=== PATIENT | female | born 1945 | race Caucasian/White ===

== ENCOUNTER 2020-08-16 07:56 | Outpatient (CLI) | payer MEDICARE, SELFPAY ==
--- NOTE | 2020-08-16 08:03 | MM_ITS ---
WS: [id number] BILATERAL DIGITAL SCREENING MAMMOGRAPHY WITH CAD CLINICAL INFORMATION: SCREENING HISTORY: Screening mammogram. No current complaints. COMPARISON: TECHNIQUE: Bilateral CC and MLO views. FINDINGS: Scattered fibroglandular densities bilaterally. No suspicious focal mass, asymmetry, calcifications, or architectural distortion. No evidence of malignancy. Punctate calcifications. Secretory calcificat ions. Vascular calcifications. MM/[place] [id number] IMPRESSION: BI-RADS: 2-Benign FOLLOW UP: 1 Year Follow-up Recommend return to annual screening mammography.
== END 2020-08-16 07:57 | disposition home or self-care (01) ==
PROVIDERS: Family Provider Family Medicine; PCP Family Medicine; Visit Provider Family Medicine
DX: Z12.31 Encounter for screening mammogram for malignant neoplasm of breast (principal)
CPT/HCPCS: 77067

== ENCOUNTER 2021-05-18 15:14 | Outpatient (CLI) | payer MEDICARE, SELFPAY ==
--- NOTE | 2021-05-18 15:45 | USCV_ITS ---
Roxie Cline Age: 76 Gender: F : 1945 Exam Date: 05/18/2021 15:41 Ordering Phys: Dario Cunningham DO Technologist: SADE Exam Location: [facility] [place] Indication: DYSPNEA BP: 124 / 93 HR: 77 Rhythm: Sinus Technical Quality: Adequate MEASUREMENTS (Male / Female) Normal Values 2D ECHO LV Diastolic Diameter PLAX 3.6 cm 4.2 - 5.9 / 3.9 - 5.3 cm LV Systolic Diameter PLAX 2.5 cm IVS Diastolic Thickness 1.5 cm 0.6 - 1.0 / 0.6 - 0.9 cm IVS Systolic Thickness 1.5 cm LVPW Diastolic Thickness 1.2 cm 0.6 - 1.0 / 0.6 - 0.9 cm LVPW Systolic Thickness 2.2 cm LVOT Diameter 2.1 cm LV Ejection Fraction 2D Teich 59.6 % LV Ejection Fraction MOD 2C 49.6 % LV Ejection Fraction 2C AL 53.1 % LA Diameter 2.8 cm LA Width 3.1 cm LA Height 5.4 cm RA Width 2.7 cm RA Height 4.6 cm Aorta at Sinotubular Diameter 2.6 cm DOPPLER AV Peak Velocity 316.8 cm/s LVOT Peak Velocity 76.0 cm/s AV Area Cont Eq vti 0.8 cm squared AV Area Cont Eq pk 0.8 cm squared MV Peak Velocity 137.0 cm/s MV Area PHT 3.6 cm squared Mitral E to A Ratio 1.5 MV E' Velocity 65.0 cm/s Mitral E to MV E' Ratio 18.4 Mitral E to LV E' Lateral Ratio 17.1 Mitral E to LV E' Septal Ratio 19.8 TR Peak Velocity 243.8 cm/s TR Peak Gradient 23.8 mmHg Right Atrial Pressure 3.0 mmHg Pulmonary Artery Systolic Pressu 26.8 mmHg PV Peak Velocity 54.0 cm/s RV Acceleration Time 0.1 s RV Ejection Time 0.4 s RV AcT/ET 0.2 FINDINGS Left Ventricle Normal left ventricular cavity size. Mildly decreased left ventricular systolic function. Left ventricular ejection fraction is estimated at 50 %. There appeared to be mild anterior and septal wall hypokinesis with septal bounce could be interventricular conduction delay postoperative state however cannot rule out coronary artery disease.Grade II/IV diastolic dysfunction, moderately elevated filling pressures. Right Ventricle Normal right ventricular size. Right Atrium The right atrium is normal in size. Left Atrium The left atrium is normal in size. Mitral Valve Moderately thickened mitral valve. No mitral valve stenosis. Moderate mitral annular calcification. Moderate-severe mitral valve regurgitation. Aortic Valve Severe aortic valve calcification. Severe aortic valve stenosis, mean gradient 20.5 mmHg, CÉSAR 0.76 cm squared.mild aortic valve regurgitation. Tricuspid Valve Structurally normal tricuspid valve without significant stenosis or regurgitation. Pulmonary artery systolic pressure is normal. Pulmonic Valve Structurally normal pulmonic valve without significant stenosis. There is no pulmonic regurgitation. Pericardium Normal pericardium without effusion. Aorta Normal ascending aorta dimension. CONCLUSIONS 1-Normal left ventricular cavity size. Mildly decreased left ventricular systolic function. Left ventricular ejection fraction is estimated at 50 %. There appeared to be mild anterior and septal wall hypokinesis with septal bounce could be interventricular conduction delay postoperative state however cannot rule out coronary artery disease.Grade II/IV diastolic dysfunction, moderately elevated filling pressures. 2-Severe aortic valve calcification. Severe aortic valve stenosis, mean gradient 20.5 mmHg, CÉSAR 0.76 cm squared.mild aortic valve regurgitation. 3-Moderately thickened mitral valve. No mitral valve stenosis. Moderate mitral annular calcification. Moderate-severe mitral valve regurgitation. 4-There is no pericardial effusion. 5-Pulmonary artery systolic pressure is within normal limits. 6-Right atrial pressure is around 5 mm of mercury. 7-When compared to the prior echocardiogram dated June 29, 2014 there is severe aortic stenosis with aortic valve area of 0.76 cm2 and mean gradient at 20 mmHg now. Due to discrepancy in the aortic valve area and gradient across it second modality such as left heart cath or transesophageal echocardiogram may be considered. There also appeared to be moderate to severe mitral valve regurgitation. There is also new anterior and septal wall motion abnormality. Laina Scanlon MD (Electronically Signed) Final Date: 18 May 2021 20:56 S
== END 2021-05-18 15:15 | disposition home or self-care (01) ==
PROVIDERS: PCP Family Medicine; Visit Provider Family Medicine
DX: R06.02 Shortness of breath (principal); R53.1 Weakness; R01.1 Cardiac murmur, unspecified; I08.0 Rheumatic disorders of both mitral and aortic valves
CPT/HCPCS: 93306

== ENCOUNTER 2021-07-22 08:09 | Emergency (ER) | payer MEDICARE, SELFPAY ==
[2021-07-22 08:17] VITALS: BP 226/89; PULSE 93; RESP 18; TEMP 37.1; O2SAT 98; BMI 28.9
--- NOTE | 2021-07-22 08:22 | ECG_ITS ---
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 Measurements Intervals [place] Rate: 77 P: 80 MO: 143 QRS: 65 QRSD: 128 T: 79 QT: 420 QTc: 478 Interpretive Statements SINUS RHYTHM LEFT BUNDLE BRANCH BLOCK [120+ ms QRS DURATION, 80+ ms Q/S IN V1/V2, 85+ ms R IN I/aVL/V5/V6] No previous ECG available for comparison Electronically Signed On 07-23-2021 17:10:06 CUT OFF WORKER by Falguni Winters M.D. [id number] f
--- NOTE | 2021-07-22 08:22 | W.ED.GENADLT ---
HPI - General Adult General: Chief complaint: General Medical Stated complaint: faint with high bp leaky heart valve surgery soon Time Seen by Provider: 07/22/21 08:17 History of Present Illness: HPI narrative: 76-year-old female presents emergency room lightheadedness dizziness faint leg feeling syncopal near syncopal episodes. She is scheduled to have a TAVR done first severe aortic stenosis. She ran out of some of her blood pressure medicines (amlodipine and losartan) several days ago her symptoms began then and have gotten progressively worse Onset (ago): hour(s) Severity: mild Relieving factors: none Exacerbating factors: none Associated symptoms: Deny chest pain, confusion, cough, diaphoresis, decreased appetite, dyspnea, fevers/chills, headache(s), malaise, nausea, rash, palpitations, seizures, short of breath, syncope, vomiting or weakness Treatments prior to arrival: none Review of Systems Const: Denies: malaise or diaphoresis ENMT: Denies: throat pain, ear or mastoid pain, nasal discharge or nasal congestion Card: Denies: chest pain, palpitations or syncope Resp: Denies: dyspnea GI: Denies: nausea or vomiting : Denies: flank pain, difficulty voiding, dysuria, urinary frequency or urinary urgency Skin/Breast: Denies: rash Neuro: Denies: headache(s) or confusion PFSH ED PFSH: Medical History Genital herpes Hypertension Hypothyroid No pertinent past medical history neghx: dm,dvt/pe TIA (transient ischemic attack) Surgical History Hx of knee surgery (~2016) R knee Family History Mother Hypertension Father Hypertension Brother Hypertension Stroke Grandmother Stroke Maternal Denies family history of Colon cancer Ovarian cancer Diabetes Heart disease Hypercholesteremia Breast cancer Bleeding disorder Uterine cancer Thyroid disease Physical Exam Const: COMMON NORMALS: no acute distress GENERAL APPEARANCE: cooperative and comfortable ORIENTATION/CONSCIOUSNESS: Yes awake, Yes oriented to person, Yes oriented to place and Yes oriented to time HENMT: COMMON NORMALS: normocephalic, atraumatic and hearing grossly normal bilaterally HEAD & SCALP: normocephalic and atraumatic Neck/C-Spine: COMMON NORMALS: no JVD Resp: COMMON NORMALS: normal respiratory effort, No retractions, No use of accessory muscles and clear to auscultation bilaterally AUSCULTATION: clear to auscultation bilaterally Cardio: COMMON NORMALS: no JVD HEART SOUNDS: Murmur heart sound present systolic Location: right sternal border Intensity: V/ GI: COMMON NORMALS: Soft to palpation and No hepatosplenomegaly present AUSCULTATION: Yes normoactive bowel sounds PALPATION: Yes Soft to palpation, No Tenderness to palpation present (GI), No Guarding due to palpation present (GI) and Yes No hepatosplenomegaly present Extremity: COMMON NORMALS: normal to inspection, capillary refill normal, no clubbing, cyanosis or edema, no calf tenderness and no pedal edema Neuro: SENSORIUM/ORIENTATION: Yes oriented to person, Yes oriented to place and Yes oriented to time Skin: COMMON NORMALS: no rashes or lesions noted GENERAL SKIN EXAM: no rashes or lesions noted Course Vital Signs: Vital signs: Vital Signs Temperature 98.7 F 07/22/21 08:17 Pulse Rate 71 07/22/21 11:00 Respiratory Rate 18 07/22/21 11:00 Blood Pressure 164/85 07/22/21 11:00 Pulse Oximetry 96 07/22/21 11:00 MDM - General Adult MDM Narrative: Medical decision making narrative: Labs imaging and EKG reviewed. Blood pressure is improved discharge patient home on losartan 550 mg daily amlodipine 5 mg daily recheck in the office in the next 4 to 5 days if is any worsening or change return to the emergency room sooner. Lab Data: Labs: Lab Results 07/22/21 07/22/21 07/22/21 09:02 09:02 09:02 WBC 6.5 10^3/uL 10^3/ uL (4.0-10.0) RBC 4.65 10^6/uL 10^6 /uL (4.1-5.3) Hgb 13.8 g/dL g/dL (11.5-15.3) Hct 41.1 % % (37.0-47.0) MCV 88.4 fl fl (81-99) MCH 29.7 pg pg (28.0-34.0) MCHC 33.6 g/dL g/dL (30.0-36.0) RDW 13.3 % % (12.1-15.1) Plt Count 284 10^3/cmm 10^3 /cmm (130-400) MPV 10.7 fL H fL (7.4-10.4) Neut % (Auto) 69.1 % % Lymph % (Auto) 23.1 % % Taney % (Auto) 5.5 % % Eos % (Auto) 1.5 % % Baso % (Auto) 0.6 % % Neut # (Auto) 4.51 10^3/uL 10^3 /uL (1.8-7.7) Lymph # (Auto) 1.5 10^3/uL 10^3/ uL (0.8-4.8) Taney # (Auto) 0.4 10^3/uL 10^3/ uL (0.2-0.9) Eos # (Auto) 0.1 10^3/uL 10^3/ uL (0.0-0.8) Baso # (Auto) 0.0 10^3/uL 10^3/ uL (0.0-0.1) Nucleated RBC % (a uto) 0 % % Nucleated RBCs # 0.0 /100WBC /100W BC Sodium 140 mmol/L mmol/L (136-145) Potassium 4.2 mmol/L mmol/L (3.5-5.1) Chloride 106 mmol/L mmol/L (98-107) Carbon Dioxide 18 mmol/L L mmol/ L (22-29) Anion Gap 20.2 H (5-19) BUN 7 mg/dL L mg/dL (8-23) Creatinine 0.5 mg/dL mg/dL (0.5-0.9) GFR Calculation Not Reportable Glucose 134 mg/dL H mg/dL (65-115) Calculated Osmolal ity 290 mOsm/kg mOsm/ kg (285-295) Calcium 8.6 mg/dL mg/dL (8.5-10.5) Troponin T Baselin e 9 ng/L ng/L (0-10) Troponin T 120 Min [place] Troponin T 07/22/21 11:05 WBC RBC Hgb Hct MCV MCH MCHC RDW Plt Count MPV Neut % (Auto) Lymph % (Auto) Taney % (Auto) Eos % (Auto) Baso % (Auto) Neut # (Auto) Lymph # (Auto) [place] # (Auto) Eos # (Auto) Baso # (Auto) Nucleated RBC % (a uto) Nucleated RBCs # Sodium Potassium Chloride Carbon Dioxide Anion Gap BUN Creatinine GFR Calculation Glucose Calculated Osmolal ity Calcium Troponin T Baselin e Troponin T 120 Min [place] 12.04 ng/L H ng/L (0-10) [place] Troponin T 3.04 ABS# ABS# (0-10) Discharge Plan Discharge Patient Disposition: Home Clinical Impression: Aortic stenosis, Benign essential HTN Condition: Stable Prescriptions: New amlodipine 5 mg tablet 5 mg PO DAILY Qty: 30 RF: 0 losartan 50 mg tablet 50 mg PO DAILY Qty: 30 RF: 0 Discontinued losartan 100 mg tablet 100 mg PO DAILY RF: 0 No Action clopidogrel [Plavix] 75 mg tablet 75 mg PO DAILY RF: 0 nystatin-triamcinolone 100,000-0.1 unit/gram-% ointment 1 applic topical BID PRN (Reason: acute vulvitis) Qty: 30 RF: 1 acyclovir 400 mg tablet 400 mg PO BID Qty: 60 RF: 11 atorvastatin 20 mg tablet 20 mg PO DAILY RF: 0 Euthyrox 75 mcg tablet 75 mcg PO DAILY RF: 0 Discharge Orders: Discharge ED (Routine); Ordered 07/22/21 Ordered By: Juan Bustamante Referrals: Dario Cunningham DO [Primary Care Provider] - Discharge Diet: Usual diet Discharge Activity: Limit activity as instructed Patient Instructions: Opioid Safety Activity Restrictions/Additional Instructions: Avoid strenuous activity. Follow-up with your primary care doctor within the next 3 to 5 days to recheck blood pressure. Coding Level of Care Code ED Machine Shop Helper for Chg Fwd Exam Comprehensive
--- NOTE | 2021-07-22 08:49 | PC.NURSE ---
NO REPORT ASSUMED CARE.
--- NOTE | 2021-07-22 08:51 | XR_ITS ---
WS: [id number] PORTABLE CHEST HISTORY: dyspnea/cough COMPARISON: None available. Mild pulmonary hyperinflation. No pneumonia. Normal vasculature. No pleural effusion or pneumothorax. Cardiac size: Normal. Mediastinum/Aorta: Normal mediastinum. No osseous abnormality seen. XR/XR chest 1V portable [id number] IMPRESSION: No acute cardiopulmonary disease.
--- NOTE | 2021-07-22 09:05 | PC.NURSE ---
PT PLACED ON CONTINUOUS SPO2, NIBP, AND CM.
[2021-07-22 09:10] VITALS: BP 238/109; PULSE 81; RESP 15; O2SAT 97
[2021-07-22] MEDS: hyDRALAzine 20 mg/mL INJ 1 mL 10 MG IVP (09:10)
[2021-07-22] MEDS: metoprolol tartrate 1 mg/1 mL SDV 5 mL 5 MG IVP (09:12)
[2021-07-22 09:13] LABS: Basophils % 0.6 %; Eosinophils # 0.1 10^3/uL (0.0-0.8); Eosinophils % 1.5 %; Hematocrit 41.1 % (37.0-47.0); Hemoglobin 13.8 g/dL (11.5-15.3); Lymphocytes # 1.5 10^3/uL (0.8-4.8); Lymphocytes % 23.1 %; Mean Corpuscular HGB Conc 33.6 g/dL (30.0-36.0); Mean Corpuscular Hemoglobin 29.7 pg (28.0-34.0); Mean Corpuscular Volume 88.4 fl (81-99); Mean Platelet Volume 10.7 fL (7.4-10.4); Monocytes # 0.4 10^3/uL (0.2-0.9); Monocytes % 5.5 %; Neutrophils # 4.51 10^3/uL (1.8-7.7); Neutrophils % 69.1 %; Nucleated Red Blood Cells % 0 %; Platelet Count 284 10^3/cmm (130-400); Red Blood Count 4.65 10^6/uL (4.1-5.3); Red Cell Distribution Width 13.3 % (12.1-15.1); White Blood Count 6.5 10^3/uL (4.0-10.0)
[2021-07-22] MEDS: amlodipine 5 mg Tablet PO (09:13)
[2021-07-22 09:30] VITALS: BP 165/77; PULSE 68; RESP 15; O2SAT 96
[2021-07-22 09:35] LABS: Troponin(5th) Baseline 9 ng/L (0-10)
[2021-07-22 09:47] LABS: Anion Gap 20.2 (5-19); Blood Urea Nitrogen 7 mg/dL (8-23); Calcium 8.6 mg/dL (8.5-10.5); Carbon Dioxide 18 mmol/L (22-29); Chloride 106 mmol/L (98-107); Glucose 134 mg/dL (65-115); Osmolality Calculated 290 mOsm/kg (285-295); Sodium 140 mmol/L (136-145)
[2021-07-22 09:48] LABS: Potassium 4.2 mmol/L (3.5-5.1)
[2021-07-22 10:00] VITALS: BP 181/78; PULSE 73; RESP 17; O2SAT 96
--- NOTE | 2021-07-22 10:22 | ECG_ITS ---
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 Measurements Intervals [place] Rate: 70 P: 73 SD: 157 QRS: 3 QRSD: 123 T: 109 QT: 455 QTc: 494 Interpretive Statements SINUS RHYTHM LEFT BUNDLE BRANCH BLOCK [120+ ms QRS DURATION, 80+ ms Q/S IN V1/V2, 85+ ms R IN I/aVL/V5/V6] Compared to ECG 07/22/2021 08:27:28 No significant changes Electronically Signed On 07-23-2021 17:14:13 ENTRY DRIVER OPERATOR by Falguni Winters M.D. [id number] f
[2021-07-22 10:40] VITALS: BP 153/62; PULSE 71; RESP 17; O2SAT 96
[2021-07-22 11:00] VITALS: BP 164/85; PULSE 71; RESP 18; O2SAT 96
[2021-07-22 11:28] LABS: Troponin 5 2HR 12.04 ng/L (0-10); Troponin 5 2HR Delta 3.04 ABS# (0-10)
== END 2021-07-22 11:28 | disposition home or self-care (01) ==
PROVIDERS: Emergency Provider Family Medicine; PCP Family Medicine
DX: I35.0 Nonrheumatic aortic (valve) stenosis (principal); I10 Essential (primary) hypertension; G45.9 Transient cerebral ischemic attack, unspecified
CPT/HCPCS: 36415; 71045; 80048; 84484; 85025; 93005; 96374; 96375; 99284; J0360; J3490

== ENCOUNTER 2022-05-20 19:40 | Emergency (ER) | payer MEDICARE, SELFPAY ==
[2022-05-20 19:53] VITALS: BP 206/92; PULSE 85; RESP 18; TEMP 36.7; O2SAT 98; BMI 29.8
--- NOTE | 2022-05-20 20:14 | W.ED.FALL ---
HPI - Fall General: Chief Complaint: Fall Stated Complaint: Fall, right leg lac Time Seen by Provider: 05/20/22 20:14 History of Present Illness: 77-year-old female comes in today for injury sustained during a fall this evening while descending stairs. Patient missed the last step causing her to fall scraping her right lower leg against the last step and hitting the right facial cheek against the floor. Patient denies any loss of consciousness. Patient reports some pain to the right wrist. Laceration is noted to the anterior right lower leg. Associated symptoms-after fall: Reports chest pain Review of Systems General: Reports: 10 or more systems reviewed and unremarkable except in HPI and below Card: Reports: chest pain Resp: Reports: dyspnea Musc: Reports: extremity pain Skin/Breast: Reports: new lesions PFSH ED PFSH: Medical History Genital herpes Hypertension Hypothyroid No pertinent past medical history neghx: dm,dvt/pe TIA (transient ischemic attack) Surgical History Hx of knee surgery (~2016) R knee Family History Mother Hypertension Father Hypertension Brother Hypertension Stroke Grandmother Stroke Maternal Denies family history of Colon cancer Ovarian cancer Diabetes Heart disease Hypercholesteremia Breast cancer Bleeding disorder Uterine cancer Thyroid disease Physical Exam Const: COMMON NORMALS: alert HENMT: COMMON NORMALS: Normal external nose present HEAD & SCALP: contusion (Right facial cheek) NOSE: Normal external nose present MOUTH: Normal oral and palatal mucosa present THROAT: posterior oropharynx normal Neck/C-Spine: COMMON NORMALS: full ROM Chest: CHEST: No tenderness Resp: COMMON NORMALS: normal respiratory effort and clear to auscultation bilaterally AUSCULTATION: clear to auscultation bilaterally Cardio: COMMON NORMALS: regular rate and regular rhythm RATE: regular rate RHYTHM: regular rhythm GI: COMMON NORMALS: Soft to palpation and non-tender PALPATION: Yes Soft to palpation Back/Pelvis: COMMON NORMALS: thoracic and lumbar spine normal to inspection Extremity: RIGHT UPPER EXTREMITY: Yes wrist (Tenderness to the joint line with mild decreased range of motion) Right wrist: Yes inspection, Yes palpation and Yes ROM RIGHT LOWER EXTREMITY: Yes lower leg (10 cm vertical laceration anterior leg.) Right lower leg: Yes inspection, Yes palpation and Yes neurovascular exam Neuro: SENSORIUM/ORIENTATION: Yes alert Skin: TRAUMA: laceration (10 cm laceration right lower leg) linear Procedures Laceration Laceration 1: Site: lower extremity Side (If applicable): right Size (cm): 8 Description: linear Depth: simple, single layer Local Anesthetic: lidocaine 1% and with epi Amount of anesthesia used (mL): 10 Pre-repair: wound explored and irrigated extensively Skin layer closed with: nylon Size (cm): 4-0 Number of sutures: 10 Technique: simple, interrupted (6) and horizontal mattress (4) Course Vital Signs: Vital signs: Vital Signs Temperature 98.1 F 05/20/22 19:53 Pulse Rate 85 05/20/22 19:53 Respiratory Rate 18 05/20/22 19:53 Blood Pressure 206/92 05/20/22 19:53 Pulse Oximetry 98 05/20/22 19:53 Oxygen Delivery Me thod 05/20/22 19:53 MDM - Fall Medical Decision Making 77-year-old female comes in today for injury to the right wrist, right lower leg, and right facial cheek after missing the last step on stairs and falling and hitting her leg and catching herself with outstretched arm and hitting the side of her face against the ground. Patient denies any loss of consciousness. Patient reports no headache. On exam patient has a 8 cm laceration to the right anterior lower leg, tenderness of the right wrist joint line, and a 3 cm circular contusion to the right facial cheek. No other signs of serious injury or illness was noted. Differential diagnosis includes fracture, contusion, laceration, foreign body, intracranial bleeding. CT of the head was negative for any intracranial bleeding. Laceration was closed with 10 sutures. Patient tolerated well. X-ray noted a probable nondisplaced fracture of the distal radius. Patient was placed in a volar wrist splint with recommendations for follow-up with orthopedist for further evaluation and treatment, case management will assist with referral. Patient agreed with plan. Patient's tetanus was updated. Patient was started on cephalexin 500 mg 1 twice a day for 7 days for concerns of secondary infection to wound. Splint was placed on the right wrist for protection of injury. Patient and family both reported understanding of care plan. Patient was also given a short prescription of hydrocodone acetaminophen 5-325 mg number 10 tablets. Lab Data Radiology Impressions Head CT 05/20/22 20:20 IMPRESSION: No acute intracranial abnormality. Tibia/Fibula X-Ray 05/20/22 20:20 IMPRESSION: No acute findings. Wrist X-Ray 05/20/22 20:20 IMPRESSION: Distal radial metaphyseal subtle oblique lucency on the oblique images, somewhat concerning for a fracture, CT could further evaluate this. Discharge Plan Discharge Patient Disposition: Home Clinical Impression: Fall (on) (from) other stairs and steps, initial encounter Nondisplaced fracture of right radius Qualifiers: Encounter type: initial encounter Radius location: distal physis (incl. Salter-Lopez) Qualified Code(s): S59.201A - Unspecified physeal fracture of lower end of radius, right arm, initial encounter for closed fracture Laceration of right lower leg Qualifiers: Encounter type: initial encounter Qualified Code(s): S81.811A - Laceration without foreign body, right lower leg, initial encounter Condition: Stable Prescriptions: New cephalexin 500 mg capsule 500 mg PO BID 7 Days Qty: 14 0RF hydrocodone-acetaminophen 5-325 mg tablet 1 tab PO Q8H PRN (Reason: pain (scale score 7-10)) Qty: 10 0RF No Action clopidogrel [Plavix] 75 mg tablet 75 mg PO DAILY nystatin-triamcinolone 100,000-0.1 unit/gram-% ointment 1 applic topical BID PRN (Reason: acute vulvitis) Qty: 30 1RF acyclovir 400 mg tablet 400 mg PO BID Qty: 60 11RF Rx Instructions: suppression atorvastatin 20 mg tablet 20 mg PO DAILY Euthyrox 75 mcg tablet 75 mcg PO DAILY amlodipine 5 mg tablet 5 mg PO DAILY Qty: 30 0RF losartan 50 mg tablet 50 mg PO DAILY Qty: 30 0RF Discharge Orders: Discharge ED (Routine); Ordered 05/20/22 Ordered By: Karl López Referrals: Dario Cunningham DO [Primary Care Provider] - Discharge Diet: Usual diet Discharge Activity: Increase activity as tolerated Patient Instructions: Laceration (ED), Splint Care (ED), Opioid Safety Activity Restrictions/Additional Instructions: Keep splint clean and dry. Use sling for comfort. Keep dressing on leg for the next 2 days and keep it as dry as possible. Follow-up with primary care in 2 to 3 days for recheck of wound. Case management will contact you regarding follow-up appointment for wrist fracture. Coding Level of Care Code ED Painter Ski Edge for Rashid Carlos Exam Comprehensive
--- NOTE | 2022-05-20 20:20 | XRR_ITS ---
PROCEDURE INFORMATION: Exam: XR Right Wrist Exam date and time: 05/20/2022 9:04 PM Age: 77 years old Clinical indication: Injury or trauma; Fall; Blunt trauma (contusions or hematomas); Wrist; Right; Additional info: Fall injury TECHNIQUE: Imaging protocol: Radiologic exam of the Right wrist. Views: 3 or more views. COMPARISON: No relevant prior studies available. FINDINGS: Bones/joints: Distal radial metaphyseal subtle oblique lucency on the oblique images, somewhat concerning for a fracture, CT could further evaluate this. Soft tissues: Normal. XR/XR wrist RT min 3V* [id number] IMPRESSION: Distal radial metaphyseal subtle oblique lucency on the oblique images, somewhat concerning for a fracture, CT could further evaluate this.
--- NOTE | 2022-05-20 20:20 | XRR_ITS ---
PROCEDURE INFORMATION: Exam: XR Right Tibia and Fibula Exam date and time: 05/20/2022 9:02 PM Age: 77 years old Clinical indication: Injury or trauma; Fall; Blunt trauma; Lower leg; Right; Additional info: Fall injury TECHNIQUE: Imaging protocol: Radiologic exam of the Right tibia and fibula. Views: 2 views. COMPARISON: No relevant prior studies available. FINDINGS: Bones/joints: Normal. Soft tissues: Normal. XR/XR tibia fibula RT 2V [id number] IMPRESSION: No acute findings.
--- NOTE | 2022-05-20 20:20 | CTR_ITS ---
PROCEDURE INFORMATION: Exam: CT Head Without Contrast Exam date and time: 05/20/2022 8:55 PM Age: 77 years old Clinical indication: Injury or trauma; Fall; Blunt trauma (contusions or hematomas); Patient HX: Patient fell down two steps. C/O head pain; Additional info: Fall, injury to face, no loc TECHNIQUE: Imaging protocol: Computed tomography of the head without contrast. Radiation optimization: All CT scans at this facility use at least one of these dose optimization techniques: automated exposure control; mA and/or kV adjustment per patient size (includes targeted exams where dose is matched to clinical indication); or iterative reconstruction. COMPARISON: No relevant prior studies available. RADIATION DOSE METRICS: Total DLP (mGy-cm): 1075.29 FINDINGS: Brain: Normal. No hemorrhage. Unremarkable white matter. No mass effect. Cerebral ventricles: No ventriculomegaly. Paranasal sinuses: Visualized sinuses are unremarkable. No fluid levels. Mastoid air cells: Visualized mastoid air cells are well aerated. Bones/joints: Unremarkable. No acute fracture. Soft tissues: Unremarkable. CT/CT head wo con* [id number] IMPRESSION: No acute intracranial abnormality.
[2022-05-20] MEDS: tetanus-dipt-pertussis 0.5 mL SDV IM (20:33)
[2022-05-20] MEDS: cephALEXin 500 mg Capsule PO (20:33)
[2022-05-20] MEDS: HYDROcodone-acetaminophen 5-325 mg Tablet 1 TAB PO (21:13)
[2022-05-20] MEDS: HYDROcodone-acetaminophen 5-325 mg Tablet 2 TAB PO (22:09)
--- NOTE | 2022-05-22 11:35 | DCPLANNER ---
Addendum entered by Traci Hanna 06/22/22 08:39: Patient had a follow up appointment on 05.23.22 at ortho - patient did attend appointment. Original Note: manager community outreach had message to schedule a follow up appointment for patient with ortho. manager community outreach sent patients information to the front office staff at ortho. Patients information will be printed and reviewed. Clinic will call patient with appointment information.
== END 2022-05-20 22:29 | disposition home or self-care (01) ==
PROVIDERS: Emergency Provider Nurse Practitioner Family; PCP Family Medicine
DX: S81.811A Laceration without foreign body, right lower leg, initial encounter (principal); S59.201A Unspecified physeal fracture of lower end of radius, right arm, initial encounter for closed fracture; W10.8XXA Fall (on) (from) other stairs and steps, initial encounter; Z23 Encounter for immunization
CPT/HCPCS: 12004; 29125; 70450; 73110; 73590; 90471; 90715; 99284

== ENCOUNTER → 2022-05-23 14:42 | Outpatient (BNVA) | payer MEDICARE, SELFPAY | PROVIDERS: PCP Family Medicine; Referring Provider Nurse Practitioner Family; Visit Provider Orthopaedic Surgery | DX: S63.501A Unspecified sprain of right wrist, initial encounter (principal); W19.XXXA Unspecified fall, initial encounter | CPT/HCPCS: 99202 ==

== ENCOUNTER → 2022-12-11 11:08 | Outpatient (BNVA) | payer MEDICARE, SELFPAY | PROVIDERS: PCP Family Medicine; Visit Provider Family Medicine | DX: I10 Essential (primary) hypertension (principal); G45.9 Transient cerebral ischemic attack, unspecified; E03.9 Hypothyroidism, unspecified; Z95.2 Presence of prosthetic heart valve | CPT/HCPCS: 80053; 80061; 84443; 85025 ==

== ENCOUNTER 2024-02-28 07:42 | Outpatient (CLI) | payer MEDICARE, SELFPAY ==
--- NOTE | 2024-02-28 08:00 | MM_ITS ---
WS: [id number] Bilateral screening 3D tomosynthesis digital mammogram, 02/28/2024 Clinical Data: Z12.39 - Encounter for other screening for malignant neop... Comparison: 08/16/2020, 03/14/2019, 08/01/2011, 06/27/2010, 06/23/2009, 04/17/2007. Findings: The breast parenchymal pattern shows fat replacement. No spiculated masses or clustered calcification s are seen. There are no secondary signs of carcinoma. There are scattered ductal and vascular calcif ications. There are lymph nodes in both axilla. MM/[place] [id number] Impression: 1. Negative bilateral mammogram unchanged. 2. Recommend annual screening mammograms. BIRADS: 1-Negative FOLLOW UP: 1 Year Follow-up The CAD bag checker was used.
== END 2024-02-28 07:43 | disposition home or self-care (01) ==
LOC: RAD 07:42
PROVIDERS: PCP Family Medicine; Visit Provider Nurse Practitioner Women's Health
DX: Z12.31 Encounter for screening mammogram for malignant neoplasm of breast (principal); R92.313 Mammographic fatty tissue density, bilateral breasts; R92.1 Mammographic calcification found on diagnostic imaging of breast
CPT/HCPCS: 77063; 77067

== ENCOUNTER → 2025-01-15 12:45 | Outpatient (BNVA) | payer MEDICARE, SELFPAY | PROVIDERS: PCP Family Medicine; Visit Provider Family Medicine | DX: I10 Essential (primary) hypertension (principal); Z95.2 Presence of prosthetic heart valve; E03.9 Hypothyroidism, unspecified; Z78.0 Asymptomatic menopausal state | CPT/HCPCS: 80053; 80061; 81000; 82306; 82607; 84443 ==

== ENCOUNTER 2025-03-19 12:28 | Outpatient (CLI) | payer MEDICARE, SELFPAY ==
--- NOTE | 2025-03-19 12:40 | MM_ITS ---
WS: [id number] BILATERAL SCREENING DIGITAL TOMOSYNTHESIS MAMMOGRAM WITH CAD HISTORY: Z12.39 - Encounter for other screening for malignant neop... COMPARISON: 02/28/2024, 08/16/2020 Bilateral CC and MLO views with tomosynthesis and synthetic mammography submitted. Computer aided detection analyzed. Breast composition: There are scattered areas of fibroglandular density. No suspicious masses, microcalcifications or architectural distortion. Bilateral breast calcifications. MM/MM scr BI tomosynthesis [id number] IMPRESSION: BI-RADS: 2 - Benign. FOLLOW UP: 1 Year Follow-up
--- NOTE | 2025-03-19 13:00 | XR_ITS ---
WS: [id number] DEXA (DUAL ENERGY X-RAY ABSORPTIOMETRY) Bone mineral density was performed using a [employer] machine. HISTORY: Z13.820 - Encounter for screening for osteoporosis COMPARISON: None available. Lumbar spine BMD (L1-L4): 1.306 g/cm2 T score: 1.1 Z score: 2.6 Total hip BMD: Left: 1.075 g/cm2. T score: 0.5 Z score: 2.3 Right: 1.009 g/cm2. T score: 0.0 Z score: 1.8 10 year probability of a major osteoporotic fracture is 17.9%. XR/XR DEXA axial skeleton* [id number] IMPRESSION: NORMAL BONE MINERAL DENSITY based upon the WHO classification for females.
== END 2025-03-19 12:29 | disposition home or self-care (01) ==
LOC: RAD 12:30
PROVIDERS: PCP Family Medicine; Visit Provider Nurse Practitioner Women's Health
DX: Z12.31 Encounter for screening mammogram for malignant neoplasm of breast (principal); Z13.820 Encounter for screening for osteoporosis; R92.323 Mammographic fibroglandular density, bilateral breasts; R92.1 Mammographic calcification found on diagnostic imaging of breast
CPT/HCPCS: 77063; 77067; 77080

== ENCOUNTER 2025-05-27 08:35 | Observation (INO) | payer MEDICARE, SELFPAY ==
[2025-05-27] VITALS (23 sets, daily range): BP systolic 102–265; BP diastolic 55–110; PULSE 66–84; RESP 16–21; TEMP 36.8–37.2; O2SAT 19–99; BMI 29.9
--- NOTE | 2025-05-27 08:43 | ECG_ITS ---
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 Measurements Intervals [place] Rate: 74 P: 87 PA: 165 QRS: 102 QRSD: 120 T: 72 QT: 428 QTc: 475 Interpretive Statements SINUS RHYTHM SEPTAL MYOCARDIAL INFARCTION , OF INDETERMINATE AGE [40+ ms Q WAVE IN V1/V2] LATERAL MYOCARDIAL INFARCTION , OF INDETERMINATE AGE [40+ ms Q WAVE AND/OR ST/T ABNORMALITY IN I/aVL/V5/V6] Compared to ECG 07/22/2021 10:27:41 LATERAL MYOCARIAL INFARCTION IS NEW Electronically Signed On 05-28-2025 19:30:34 CDT by Xavier Hill M.D. [email or web address]
--- OUTSIDE RECORDS SUMMARY | 2025-05-27 09:00 | XMS_ITS | Encounter Summary ---
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
--- OUTSIDE RECORDS SUMMARY | 2025-05-27 09:00 | XMS_ITS | Clinical Summary ---
Author Organization [facility] Address [address] [facility] Attn: Epic Prelude ADT [place] [address] Care Team Providers Care Caterer Helper Name Role Phone Unavailable Primary Care Provider Unavailabl e Immunizations Immunization Administration Dates Next Due (ADACEL/BOOSTRIX)(10 YR UP) TDAP VACCINE, 0.5ML, IM 04/18/2007 Hepatitis A Vaccine 05/30/2007,04/18/2007 Hepatitis B Vaccine 05/30/2007,04/18/2007 Social History Tobacco Use Types Packs/Day Years Used Date Smoking Tobacco: Never Assessed Comments Unknown Sex and Gender Information Value Date Recorded Sex Assigned at Not on file 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
--- OUTSIDE RECORDS SUMMARY | 2025-05-27 09:00 | XMS_ITS | Encounter Summary ---
Author Organization [facility] Address [address] [place] [address] Care Team Providers Care Order Schedule Clerk Name Role Phone Unavailable Primary Care Provider Unavailabl e Encounter Details Date Type Department Care Team (Latest Contact Info) Description 04/20/2003 Outpatient Historical [facility] Colt Root MD [address] [place], [place] [id number] GENITAL HERPES NOS (Primary Dx); CARPAL TUNNEL SYNDROME Social History Tobacco Use Types Packs/Day Years Used Date Smoking Tobacco: Never Assessed Comments Unknown Sex and Gender Information Value Date Recorded Sex Assigned at Not on file Legal 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
--- OUTSIDE RECORDS SUMMARY | 2025-05-27 09:00 | XMS_ITS | Patient Health Record ---
Author Organization [facility], [facility] Address [address] [place] [address] Care Team Providers Care Electrician Name Role Phone Dario Cunningham Primary Care Provider FLAKO Wilson Unavailable [phone] Allergies Allergen (clinical drug ingredient) Drug/Non Drug Allergy documented on EMR Reaction Allergy Type Onset Date Status aspirin Aspirin Unknown Drug Allergy Active Results Component Value Reference Range Notes Urinalysis, Routine Reviewed date:03/18/2025 10:00:09 AM Interpretation: Performing Lab: Notes/Report: Urine-Color pale yellow Appearance clear Glucose - Bilirubin - Ketones - Specific Lula 1.010 Occult Blood - pH 7.0 Urine Protein - Urobilinogen,Semi-Qn - Nitrite, Urine - WBC Esterase trace UBASE - Urinary Tract Infect ion (HTRx) Reviewed date:02/19/2025 01:17:46 PM Interpretation: Performing Lab:, [email or web address] at [address], Phone - [phone], Director - [id number] Notes/Report: Acinetobacter baumannii 0 19.961 - 24.689 p pm Acinetobacter baumannii Not Detected 19.961 - 24.689 p pm Citrobacter freundii 0 23.000 - 32.015 ppm Citrobacter freundii Not Detected 23.000 - 32.015 ppm Enterobacter aerogenes, cloacae 0 23.000 - 32.290 ppm Enterobacter aerogenes, cloacae Not Detected 23.000 - 32.290 ppm Enterococcus faecalis, faecium 0 26.000 - 3 3.043 ppm Enterococcus faecalis, faecium Not Detected 26.000 - 3 3.043 ppm Escherichia coli 0 23.000 - 28.500 ppm Escherichia coli Not Detected 23.000 - 28.500 ppm Klebsiella pneumoniae, oxytoca 0 23.000 - 3 1.865 ppm Klebsiella pneumoniae, oxytoca Not Detected 23.000 - 3 1.865 ppm Morganella morganii 0 19.961 - 24.689 ppm Morganella morganii Not Detected 19.961 - 24.689 ppm Proteus mirabilis, vulgaris 0 23.000 - 28.5 00 ppm Proteus mirabilis, vulgaris Not Detected 23.000 - 28.5 00 ppm Pseudomonas aeruginosa 0 23.000 - 31.801 pp m Pseudomonas aeruginosa Not Detected 23.000 - 31.801 pp m Staphylococcus aureus 0 26.000 - 31.595 ppm Staphylococcus aureus Not Detected 26.000 - 31.595 ppm Streptococcus agalactiae (Group B Strep) 0 26.000 - 32.435 ppm Streptococcus agalactiae (Group B Strep) Not Detected 26.000 - 32.435 ppm Lin albicans, parapsilosis, tropicalis 0 23.000 - 30.347 ppm Lin albicans, parapsilosis, tropicalis Not Detecte d 23.000 - 30.347 ppm Lin glabrata (Nakaseomyces glabratus) 0 23.000 - 31.618 ppm Lin glabrata (Nakaseomyces glabratus) Not Detected 23.000 - 31.618 ppm Lin krusei (Pichia kudriavzevii) 0 23.0 00 - 30.873 ppm Lin krusei (Pichia kudriavzevii) Not Detected 23.0 00 - 30.873 ppm Serratia marcescens 0 23.000 - 31.581 ppm Serratia marcescens Not Detected 23.000 - 31.581 ppm Streptococcus pyogenes (Group A strep) 0 19 .961 - 24.689 ppm Streptococcus pyogenes (Group A strep) Not Detected 19 .961 - 24.689 ppm Staphylococcus saprophyticus 0 19.961 - 24. 689 ppm Staphylococcus saprophyticus Not Detected 19.961 - 24. 689 ppm Staphylococcus epidermidis, haemolyticus, lugdunensis 0 19.961 - 24.689 ppm Staphylococcus epidermidis, haemolyticus, lugdunensis Not Detected 19.961 - 24.689 ppm Urinalysis, Routine Reviewed date:02/18/2025 08:59:22 AM Interpretation: Performing Lab: Notes/Report: Urine-Color yellow Appearance cloudy Glucose - Bilirubin - Ketones - Specific Lula 1.005 Occult Blood - pH 6.5 Urine Protein - Urobilinogen,Semi-Qn - Nitrite, Urine - WBC Esterase 1+ Reason For Referral No Information Medications Medication SIG (Take, Route, Frequency, Duration) Notes Start Date End Date Status Gemtesa 75 MG 1 tablet Orally Once a day; Duration: 90 days Enroll in patient assistance program. She can not afford her copay. 04/09/2025 04/04/2026 Active Metoprolol Tartrate 25 MG 1 tablet with food Orally Twice a day Active Tamsulosin HCl 0.4 MG 1 capsule Orally Once a day Not-Taking Gemtesa 75 MG 1 tablet Orally Once a day; Duration: 30 days 03/18/2025 Active Levothyroxine Sodium 75 MCG 1 tablet in the morning on an empty stomach Orally Once a day Active Atorvastatin Calcium 20 MG 1 tablet Orally Once a day Active Clopidogrel Bisulfate 75 MG 1 tablet Orally Once a day Active Losartan Potassium 100 MG 1 tablet Orally Once a day Active Timolol Hemihydrate 0.5 % 1 drop into affected eye Ophthalmic Once a day Active Latanoprost 0.005 % 1 drop into affected eye in the evening Ophthalmic Once a day Active Social History Tobacco Use: Social History Observation Description Date Details (start date - stop date) Never Smoker NA - NA Tobacco Control (Standard) Question Answer Notes Tobacco use: Nonsmoker AUDIT-C (Standard) Question Answer Notes Did you have a drink containing alcohol in the p ast year? No Points 0 Interpretation Negative Problems Problem Type SNOMED Code ICD Code Onset Dates Problem Status W/U Status Risk Notes Problem Overactive bladder (748630441) Overactive bladder (N32.81) Active confirmed Problem Hypertension (06055408) Uncontrolled hypertension (I10) Active confirmed Problem Advanced age (30545501) Advanced age (R54) Active confirmed Vital Signs Heart Rate 102 /min 03/18/2025 Blood pressure diastolic 84 mm Hg 03/18/2025 Height-cm 160.02 cm 03/18/2025 Weight-kg 73.48 kg 03/18/2025 Height 63 in 03/18/2025 Blood pressure systolic 185 mm Hg 03/18/2025 Weight 162 lbs 03/18/2025 BMI 28.69 kg/m2 03/18/2025 Procedures Procedure Date Ordered Date Performed Result Body Sit e Bladder Scan 02/18/2025 02/18/2025 pvr 128 mL Bladder Scan 03/18/2025 03/18/2025 N/A Encounters Encounter Location Date Provider Diagnosis [facility], [place] [employer] [facility], [facility] [address] [facility] [place] [address] 02/18/2025 FLAKO VIEYRA Frequency of urinati on R35.0 ; Urinary urgency R39.15 ; Nocturia R35.1 ; Incomplete bladder emptying R33.9 ; Leukocytes in urine R82.998 and Dysuria R30.0 [facility], [facility] [address] [facility] [place] [address] 03/18/2025 FLAKO VIEYRA Frequency of urinati on R35.0 ; Overactive bladder N32.81 ; Incomplete bladder emptying R33.9 ; Urinary urgency R39.15 and Nocturia R35.1 [facility], [facility] [address] [facility] [place] [address] 02/04/2025 FLAKO VIEYRA ITYZ [facility], [facility] [address] [facility] [place] [address] 02/19/2025 FLAKO VIEYRA ITYZ [facility], [facility] [address] [facility] [place] [address] 04/09/2025 FLAKO VIEYRA Assessments Encounter Date Diagnosis (ICD Code) Assessment Notes Treatment Notes Treatment Clinical Notes Section Notes 02/18/2025 Frequency of urination (ICD-10 - R35.0) 02/18/2025 Urinary urgency (ICD-10 - R39.15) 03/18/2025 Overactive bladder (ICD-10 - N32.81) Electronic Prior Authorization was requested for Gemtesa 75 MG Tablet. Provider can order medication once approval received. 03/18/2025 Frequency of urination (ICD-10 - R35.0) 02/18/2025 Nocturia (ICD-10 - R35.1) 03/18/2025 Incomplete bladder emptying (ICD-10 - R33.9) 02/18/2025 Incomplete bladder emptying (ICD-10 - R33.9) 03/18/2025 Urinary urgency (ICD-10 - R39.15) 03/18/2025 Nocturia (ICD-10 - R35.1) 02/18/2025 Leukocytes in urine (ICD-10 - R82.998) 02/18/2025 Dysuria (ICD-10 - R30.0) 02/18/2025 Other UA with leukocy gokul, PVR 128ml. Send for PCR to rule out low growth or vaginal bacteria contributing to her symptoms, call with results and treat as indicated. We discussed that the treatment of OAB is generally with anticholinergic medications or beta-3 agonist medications. Anticholinergics are contraindicated due to her age and incomplete emptying, as they could worsen mental status and retention. Myrbetriq contraindicated due to her uncontrolled HTN. I will give samples of Gemtesa. Adminstration and s/e profile reviewed. I have given a bladder irritant handout, and recommend double voiding. She will RTC in 4-6 weeks with UA/PVR, or call sooner with any issues. If medications are not effective, we can discuss possible third-line options at next visit. 03/18/2025 Other UA clear, PVR 2 9ml. Emptying much better on Gemtesa. She reports improved frequency, urgency and nocturia as well. Send Rx today. May need PA for coverage, anticholinergics are contraindicated due to her age and incomplete emptying, as they could worsen mental status and retention. Myrbetriq contraindicated due to her uncontrolled HTN. RTC in 4-6 months with UA/PVR, or PRN sooner. Plan Of Treatment Next Appt Details Provider Name:FLAKO VIEYRA, 0 08/06/2025 10:50:00 AM, [address] [place], [address], Insurance Providers Payer Name Payer Address Payer Phone Subscriber Number Group Number Insured Name Patient Relationship to Insured Coverage Start Date Coverage End Date [employer] Medicare Replacement [address] [address] [place], [place] [id number] Roxie Cline Self - patient is the insured Medical (General) History Medical History History ICD Code heart disease high cholesterol high blood pressure Surgical History Surgery Date(Month/Year) aortic valve replaced 08/02/2021 Hospitalization History Reason Date(Month/Year) hospital stay for testing heart surgery
--- OUTSIDE RECORDS SUMMARY | 2025-05-27 09:00 | XMS_ITS | Clinical Summary ---
Author Organization [facility] Address [address] [place] [address] Phone Care Team Providers Care Product Mgmt Dev Manager Name Role Phone Dario Cunningham DO Primary Care Provider [phone] Allergies Active Allergy Reactions Criticality Noted Date Comments Aspirin Hives High 06/04/2021 Medications atorvastatin (LIPITOR) 20 mg tablet Take 20 mg by mouth daily. Active clopidogreL (PLAVIX) 75 mg Tablet Take 75 mg by mouth. Active levothyroxine 75 mcg tablet Take 75 mcg by mouth daily in the morning. Active metoprolol tartrate (LOPRESSOR) 25 mg tablet Take 1 Tablet (25 mg) by mouth 2 times daily. 60 Tablet 2 2 Active losartan (COZAAR) 100 mg tablet TAKE 1 TABLET BY MOUTH ONCE DAILY FOR HIGH BLOOD PRESSURE 2 Active OTHER Provider please include Medication name, dose, route and frequency Active acyclovir (ZOVIRAX) 400 mg tablet Take 400 mg by mouth 2 times daily. 3 Active timoloL maleate (TIMOPTIC) 0.5% solution INSTILL 1 DROP INTO EACH EYE IN THE MORNING 3 Active latanoprost (XALATAN) 0.005 % solution INSTILL 1 DROP INTO EACH EYE ONCE DAILY AT NIGHT 3 Active hydroCHLOROthia zide (MICROZIDE) 12.5 mg capsule Take 1 Capsule (12.5 mg) by mouth daily. 30 Capsule 11 4 Active Active Problems Problem Noted Date Diagnosed Date S/P AVR (aortic valve replacement) 08/03/2021 Nonrheumatic aortic valve stenosis 06/06/2021 Nonrheumatic aortic valve insufficiency 06/06/20 21 Shortness of breath 06/04/2021 Hyperlipidemia 06/04/2021 Hypothyroidism 06/04/2021 HTN (hypertension), benign Immunizations Immunization Administration Dates Next Due (ADACEL/BOOSTRIX)(10 YR UP) TDAP VACCINE, 0.5ML, IM 04/18/2007 (PFIZER)(12 YR UP) COVID-19 VACCINE - EMERGENCY USE AUTHORIZATION, MRNA, [id number](PF) 30 MCG/0.3 ML IM SUSP 04/27/2021,09/24/2020,08/27/2020 (PREVNAR 13)(6 WKS UP) PNEUM OCOCCAL CONJUGATE (PCV13) 0.5 ML, IM 06/06/2021 (TWINRIX)(18 YRS UP) HEPATIT IS A AND HEPATITIS B VACCINE ADULT, 1 ML, IM 05/30/2007,04/18/2007 Hepatitis A Vaccine 05/30/2007,04/18/2007 Hepatitis B Vaccine 05/30/2007,04/18/2007 Influenza Seasonal Unspecifi ed Formulation IM 05/08/2021 Social History Tobacco Use Types Packs/Day Years Used Date Smoking Tobacco: Never Smokeless Tobacco: Never Tobacco Cessation:Counseling Given: Not Answered Comments No Sex and Gender Information Value Date Recorded Sex Assigned at Not on file Legal Sex Female 7:28 AM EMERGENCY MEDICINE NURSE PRACTITIONER Gender Identity Not on file Sexual Orientation Not on file Last Filed Vital Signs Vital Sign Reading Time Taken Comments Blood Pressure 142/94 10/16/2024 10:56 AM CDT Pulse 75 10/16/2024 10:56 AM CDT Temperature 36.7 C (98.1 F) 08/09/2021 11:45 AM EMERGENCY MEDICINE NURSE PRACTITIONER Respiratory Rate 14 08/09/2021 11:45 AM EMERGENCY MEDICINE NURSE PRACTITIONER Oxygen Saturation 97% 10/16/2024 10:56 AM CDT Inhaled Oxygen Concentration - - Weight 75.8 kg (167 lb 3.2 oz) 10/16/2024 10:56 AM CDT Height 157.5 cm (5' 2 ) 10/16/2024 10:56 AM CDT Body Mass Index 30.58 10/16/2024 10:56 AM CDT Plan of Treatment Upcoming Encounters Date Type Department Care Team (Late st Contact Info) Description 10/21/2025 12:00 PM CDT Appointment [facility] [address] [place] [address] Charlie Pineda MD [address] [place] [address] 10/21/2025 3:00 PM CDT Office Visit [facility] [address] [place] [address] Christal Atkinson, SURFACE TO AIR WEAPONS OFFICER [address] [place] [address] Health Maintenance Due Date Last Done Comments ZOSTER VACCINE (1 of 2) 1995 OSTEOPOROSIS SCREENING 2010 DTAP/TDAP/TD VACCINES (2 - T d or Tdap) 04/18/2017 04/18/2007 RSV VACCINE (60+ or ) (1 - 1-dose 75+ series) 2020 PNEUMOCOCCAL VACCINE 50+ YEA RS (2 of 2 - PCV20 or PCV21) 06/06/2022 06/06/2021 INFLUENZA VACCINE (#1) 2025 05/08/2021 COVID-19 Vaccine ( - season) 2025 04/27/2021, 09/24/2020, 08/27/2020 Medical Devices Implanted Type Area Rescue Boat Operator Device Identifier Shelf Expiration Date Model / Serial / Lot Patch Pericardial 5x10 [id number] - [id number] Implanted:Qty: 1 on 08/02/2021 by Abilio Lewis MD at [facility] Graft N/A: Heart [employer] [id number] 01/24/2024 [id number] / / [id number] Hemostatic Surgifoam [id number] Implanted:Qty: 1 on 08/02/2021 at [facility] Hemostatic N/A: Sternum [employer] [id number] 09/28/2022 1974 / / [id number] Sealant Progel Pleural 4ml [id number] - [id number] Implanted:Qty: 1 on 08/02/2021 by Abilio Lewis MD at [facility] Tissue N/A: Aorta CR [employer] 11/14/2022 [id number] / / [id number] Vlv Aortic Inspiris 21mm [id number] - [id number] Implanted:Qty: 1 on 08/02/2021 by Abilio Lewis MD at [facility] Valve N/A: Heart [employer] [id number] 03/23/2025 [id number] / / [id number] Insurance [employer] PPO MCR RX [employer] RX Member Subscriber Plan / Payer (Ef fective 2020-Present) Name:Roxie Cline Relation to Subscriber:Self Name:Roxie Cline Payer ID:Not on file Group ID:[id number] Type:RX Medicare Part D Address: [place] RX SGF BACTROBAN (INTERNAL) [facility] Internal Plans Advance Directives For more information, please contact: [phone] * Full Code (Latest Code Status on File) Date Activated Date Inactivated Comments 08/02/2021 1:58 PM 08/09/2021 3:27 PM * Full Code Date Activated Date Inactivated Comments 06/07/2021 3:58 AM 06/08/2021 3:51 PM * Full Code Date Activated Date Inactivated Comments 06/05/2021 2:21 AM 06/07/2021 3:57 AM Care Teams Product Mgmt Dev Manager Relationship Specialty Start Date End Date Dario Cunningham DO [address] [place] [address] PCP - General Family Practice 06/04/21
--- OUTSIDE RECORDS SUMMARY | 2025-05-27 09:00 | XMS_ITS | Encounter Summary ---
Author Organization [facility] Address [address] [place] [address] Care Team Providers Care Spray Operator Name Role Phone Unavailable Primary Care Provider Unavailabl e Encounter Details Date Type Department Care Team (Latest Contact Info) Description 05/05/2003 Outpatient Historical [facility] Colt Root MD [address] [place], [place] [id number] Gynecologic examination (Primary Dx); SCREENING MAL NEOP-CERVIX; Other Counseling Social History Tobacco Use Types Packs/Day Years Used Date Smoking Tobacco: Never Assessed Comments Unknown Sex and Gender Information Value Date Recorded Sex Assigned at Not on file 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
--- NOTE | 2025-05-27 09:14 | XR_ITS ---
WS: [id number] Exam: XR chest 1V portable [id number] Date/Time of Exam: 05/27/2025 9:36 AM Reason For Exam: dyspnea/cough Comparison 07/22/2021. Lungs are fully inflated and clear. Normal cardiomediastinal silhouette. Signs of median sternotomy and cardiac valve replacement. No pleural effusions. Bony structures are intact. XR/XR chest 1V portable [id number] IMPRESSION: 1. No acute cardiopulmonary finding.
[2025-05-27] MEDS: hyDRALAzine 20 mg/mL INJ 1 mL IVP ×2 (09:49→12:08)
--- NOTE | 2025-05-27 09:52 | W.ED.SOB ---
HPI - SOB/Dyspnea General: Chief Complaint: Shortness of Breath/Dyspnea Stated Complaint: HBP and Sob Time Seen by Provider: 05/27/25 09:11 History of Present Illness: HPI Narrative: 80-year-old female presents emergency room complaining elevated blood pressure and some shortness of breath she denies any chest pain. She seen her primary care doctor recently and was started on amlodipine but she has not had time to pick it up. She has a little bit of a headache no difficulty with speech or vision no ataxia. On initial exam neurologic evaluation completely normal. 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 Associated symptoms: Deny abdominal pain, chest pain or fever(s) Related Data Home Medications ?Medication ?Instructions ?Recorded ?Confirmed acyclovir 400 mg tablet 400 mg PO BID PRN active virus 05/27/25 05/27/25 clopidogrel 75 mg tablet 75 mg PO DAILY 05/27/25 05/27/25 latanoprost 0.005 % eye drops 1 drp ophthalmic (eye) BEDTIME 05/27/25 05/27/25 levothyroxine 75 mcg tablet 75 mcg PO QAM 05/27/25 05/27/25 timolol maleate 0.5 % eye drops 1 drp ophthalmic (eye) QAM 05/27/25 05/27/25 Previous Rx's ?Medication ?Instructions ?Recorded losartan 100 mg tablet 100 mg PO DAILY #90 tabs 10/13/24 metoprolol tartrate 25 mg tablet 25 mg PO BID #180 tabs 01/29/25 atorvastatin 20 mg tablet 20 mg PO DAILY #90 tabs 04/15/25 amlodipine 5 mg tablet 5 mg PO DAILY bp #30 tabs 05/26/25 Allergies Allergy/AdvReac Type Severity Reaction Status Date / Time aspirin Allergy hives Verified 02/24/25 09:26 Review of Systems Const: Denies: fever(s) or chills Card: Denies: chest pain Resp: Denies: dyspnea GI: Denies: abdominal pain : Denies: dysuria, urinary frequency or urinary urgency Musc: Denies: neck pain or back pain Skin/Breast: Denies: rash PFSH ED PFSH: Medical History Genital herpes No pertinent past medical history neghx: dm,dvt/pe Hypothyroid Hypertension TIA (transient ischemic attack) Surgical History Hx of knee surgery (~2016) R knee Family History Mother Hypertension Father Hypertension Brother Hypertension Stroke Grandmother Stroke Maternal Denies family history of Colon cancer Ovarian cancer Diabetes Heart disease Hypercholesteremia Breast cancer Bleeding disorder Uterine cancer Thyroid disease Social History Smoking and tobacco/nicotine status: never used tobacco/nicotine Physical Exam Const: COMMON NORMALS: no acute distress GENERAL APPEARANCE: cooperative and comfortable ORIENTATION/CONSCIOUSNESS: Yes awake, Yes oriented to person, Yes oriented to place and Yes oriented to time HENMT: COMMON NORMALS: normocephalic, atraumatic and hearing grossly normal bilaterally HEAD & SCALP: normocephalic and atraumatic Resp: COMMON NORMALS: normal respiratory effort, No retractions, No use of accessory muscles and clear to auscultation bilaterally AUSCULTATION: clear to auscultation bilaterally Cardio: COMMON NORMALS: regular rate, regular rhythm and No murmurs present (Cardio) RATE: regular rate RHYTHM: regular rhythm GI: COMMON NORMALS: Soft to palpation and No hepatosplenomegaly present AUSCULTATION: Yes normoactive bowel sounds PALPATION: Yes Soft to palpation, No Tenderness to palpation present (GI), No Guarding due to palpation present (GI) and Yes No hepatosplenomegaly present Extremity: COMMON NORMALS: normal to inspection, capillary refill normal, no clubbing, cyanosis or edema, no calf tenderness and no pedal edema Neuro: SENSORIUM/ORIENTATION: Yes oriented to person, Yes oriented to place and Yes oriented to time Skin: COMMON NORMALS: no rashes or lesions noted GENERAL SKIN EXAM: no rashes or lesions noted Course Vital Signs: Vital signs: Vital Signs Temperature 98.9 F 05/27/25 17:45 Pulse Rate 82 05/27/25 17:45 Respiratory Rate 17 05/27/25 17:45 Blood Pressure 182/70 05/27/25 17:45 Pulse Oximetry 97 05/27/25 17:13 Oxygen Delivery Me thod Room Air 05/27/25 15:55 MDM - SOB/Dyspnea Medical Decision Making Accelerated hypertension patient not having any chest pain neurologic exam unremarkable she does have complaint of headache. Head CT was negative chest x-ray unremarkable patient was given hydralazine and labetalol continue to have elevated blood pressure started on nicardipine. Discussed with hospitalist will admit orders written Medical Records I reviewed the patient's medical records. Lab Data I reviewed the patient's lab results. 05/27/25 09:35 05/27/25 09:35 Labs/Radiology: Radiology Impressions Chest X-Ray 05/27/25 09:14 IMPRESSION: 1. No acute cardiopulmonary finding. Head CT 05/27/25 13:07 IMPRESSION: 1. No acute intracranial hemorrhage or edema. 2. Very mild cerebral atrophy and small vessel disease. Laboratory Results WBC 5.47 10^3/uL (3.29-11.43) 05/27/25 09:35 RBC 4.64 10^6/uL (3.85-5.65) 05/27/25 09:35 Hgb 13.50 g/dL (11.27-16.99) 05/27/25 09:35 Hct 42.0 % (36-47) 05/27/25 09:35 MCV 90.5 fl (85-98) 05/27/25 09:35 MCH 29.1 pg (27-33) 05/27/25 09:35 MCHC 32.1 g/dL (30-55) 05/27/25 09:35 RDW 13.8 % (12.1-15.1) 05/27/25 09:35 Plt Count 183 10^3/cmm (157-399) 05/27/25 09:35 MPV 9.9 fL (7.4-10.4) 05/27/25 09:35 Neut % (Auto) 59.9 % 05/27/25 09:35 Lymph % (Auto) 25.2 % 05/27/25 09:35 [place] % (Auto) 9.1 % 05/27/25 09:35 Eos % (Auto) 4.9 % 05/27/25 09:35 Baso % (Auto) 0.5 % 05/27/25 09:35 Neut # (Auto) 3.27 10^3/uL (1.8-7.7) 05/27/25 09:35 Lymph # (Auto) 1.4 10^3/uL (0.8-4.8) 05/27/25 09:35 [place] # (Auto) 0.5 10^3/uL (0.2-0.9) 05/27/25 09:35 Eos # (Auto) 0.3 10^3/uL (0.0-0.8) 05/27/25 09:35 Baso # (Auto) 0.0 10^3/uL (0.0-0.1) 05/27/25 09:35 Nucleated RBC % (auto) 0 % 05/27/25 09:35 Nucleated RBCs # 0.0 /100WBC 05/27/25 09:35 Sodium 137 mmol/L (136-145) 05/27/25 09:35 Potassium 4.1 mmol/L (3.5-5.1) 05/27/25 09:35 Chloride 101 mmol/L (98-107) 05/27/25 09:35 Carbon Dioxide 21 mmol/L (22-29) L 05/27/25 09:35 Anion Gap 19.1 (5-19) H 05/27/25 09:35 BUN 9 mg/dL (8-23) 05/27/25 09:35 Creatinine 0.6 mg/dL (0.5-0.9) 05/27/25 09:35 GFR Calculation Not Reportable 05/27/25 09:35 Glucose 166 mg/dL (65-115) H 05/27/25 09:35 Calculated Osmolality 286 mOsm/kg (285-295) 05/27/25 09:35 Calcium 9.2 mg/dL (8.5-10.5) 05/27/25 09:35 Total Bilirubin 1.0 mg/dL (0.15-1.2) 05/27/25 09:35 AST 23 U/L (0-32) 05/27/25 09:35 ALT 25 U/L (0-33) 05/27/25 09:35 Alkaline Phosphatase 87 U/L (35-105) 05/27/25 09:35 Troponin T Baseline 14 ng/L (0-10) H 05/27/25 09:35 Troponin T 120 Minute 14.29 ng/L (0-10) H 05/27/25 11:19 Delta Troponin T 0.29 ABS# (0-10) 05/27/25 11:19 NT-Pro-B Natriuret Pep 1058 pg/mL (0-450) H 05/27/25 09:35 Total Protein 7.2 g/dL (6.6-8.7) 05/27/25 09:35 Albumin 4.3 g/dL (3.5-5.2) 05/27/25 09:35 Globulin 2.9 g/dL (1.3-4.6) 05/27/25 09:35 All radiology interpretation(s) finalized by discharge EKG Data EKG 1: I personally reviewed and interpreted this EKG as follows: Interpretation: EKG 05/27/2025 8:43 AM sinus rhythm no acute ST changes noted. Rate 74 OH interval 165 QTc 475. Compared to EKG 07/22/2020 and left bundle branch block no longer present EKG 2: I personally reviewed and interpreted this EKG as follows: Interpretation: thm nonspecific ST changes rate of 73 OH interval 167 QTc 49. Compared to EKG 05/27/2025 QT slightly lengthened no other acute changes Discharge Plan Discharge Patient Disposition: Placed in Observation Admit Provider: Jeremy Aquino Clinical Impression: Hypertensive urgency Coding Level of Care Code ED Drying Machine Receiver for Rashid Carlos
[2025-05-27 09:54] LABS: Hematocrit 42.0 % (36-47); Hemoglobin 13.50 g/dL (11.27-16.99); Mean Corpuscular HGB Conc 32.1 g/dL (30-55); Mean Corpuscular Hemoglobin 29.1 pg (27-33); Mean Corpuscular Volume 90.5 fl (85-98); Nucleated Red Blood Cells % 0 %; Platelet Count 183 10^3/cmm (157-399); Red Blood Count 4.64 10^6/uL (3.85-5.65); White Blood Count 5.47 10^3/uL (3.29-11.43)
[2025-05-27 10:04] LABS: Troponin(5th) Baseline 14 ng/L (0-10)
[2025-05-27] MEDS: nicardipine 20 MG/200 ML PREMIX 25 MG IV (10:08)
[2025-05-27 10:17] LABS: Slide Review Slide Review Perform
[2025-05-27 10:18] LABS: Alanine Aminotransferase 25 U/L (0-33); Albumin Level 4.3 g/dL (3.5-5.2); Alkaline Phosphatase 87 U/L (35-105); Anion Gap 19.1 (5-19); Aspartate Amino Transferase 23 U/L (0-32); Blood Urea Nitrogen 9 mg/dL (8-23); Calcium 9.2 mg/dL (8.5-10.5); Carbon Dioxide 21 mmol/L (22-29); Chloride 101 mmol/L (98-107); Creatinine Clr Calc Pharmacy 52.9617; Globulin 2.9 g/dL (1.3-4.6); Glucose 166 mg/dL (65-115); Osmolality Calculated 286 mOsm/kg (285-295); Potassium 4.1 mmol/L (3.5-5.1); Sodium 137 mmol/L (136-145); Total Protein 7.2 g/dL (6.6-8.7)
--- NOTE | 2025-05-27 11:15 | ECG_ITS ---
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 Technician: : 1945 Requested By: Juan Olea Order Number: [id number] Reading MD: JV NICOLE Measurements Intervals [place] Rate: 73 P: 84 HI: 167 QRS: 99 QRSD: 122 T: 78 QT: 450 QTc: 499 Interpretive Statements SINUS RHYTHM BORDERLINE RIGHT AXIS DEVIATION [QRS AXIS > 90] MODERATE INTRAVENTRICULAR CONDUCTION DELAY [110+ ms QRS DURATION] NONSPECIFIC T-WAVE ABNORMALITY PROLONGED QT INTERVAL Compared to ECG 05/27/2025 08:43:13 Intraventricular conduction delay now present T-wave abnormality now present Prolonged QT interval now present Myocardial infarct finding no longer present Electronically Signed On 05-30-2025 21:16:00 CDT by JV NICOLE [email or web address]
[2025-05-27 12:51] LABS: Troponin 5 2HR 14.29 ng/L (0-10); Troponin 5 2HR Delta 0.29 ABS# (0-10)
--- NOTE | 2025-05-27 13:07 | CT_ITS ---
WS: [id number] CT HEAD NONCONTRAST HISTORY: weakness TECHNIQUE: Contiguous axial imaging performed through the brain. Bone and soft tissue windows. Sagittal and coronal reformats reviewed. All CT scans at [facility] use at least one of these dose optimization techniques: automated exposure control; mA and/or kV adjustment per patient size (includes targeted exams where dose is matched to clinical indication); or iterative reconstruction. DLP: 1017.78 mGy.cm COMPARISON: 05/20/2022 No acute intracranial hemorrhage, midline shift or mass effect. Mild atrophy and mild small vessel changes. No acute infarcts. Ventricles: Normal size with no hydrocephalus. No inferior displacement of the cerebellar tonsils. Paranasal sinuses: As visualized are clear. Mastoid air cells: Well pneumatized. Calvarium and scalp: Skull is intact with no soft tissue edema or swelling. Mild atherosclerotic plaque in the intracranial carotid arteries. CT/CT head wo con* [id number] IMPRESSION: 1. No acute intracranial hemorrhage or edema. 2. Very mild cerebral atrophy and small vessel disease.
--- NOTE | 2025-05-27 13:08 | USCV_ITS ---
Roxie Cline Age: 80 Gender: F : 1945 Exam Date: 05/27/2025 14:30 Ordering Phys: Jeremy Aquino MD Technologist: GINETTE Exam Location: [facility] [place] Indication: Weakness. STEMI BP: 144 / 65 HR: 73 Rhythm: Sinus Technical Quality: Adequate MEASUREMENTS (Male / Female) Normal Values 2D ECHO LV Diastolic Diameter PLAX 4.0 cm 4.2 - 5.9 / 3.9 - 5.3 cm IVS Diastolic Thickness 0.9 cm 0.6 - 1.0 / 0.6 - 0.9 cm IVS Systolic Thickness 1.2 cm LVPW Diastolic Thickness 1.1 cm 0.6 - 1.0 / 0.6 - 0.9 cm LVPW Systolic Thickness 1.4 cm LVOT Diameter 1.7 cm LV Ejection Fraction 2D Teich 34.0 % LV Ejection Fraction MOD 4C 54.2 % LV Ejection Fraction MOD 2C 54.9 % LV Ejection Fraction 2C AL 53.3 % LA Diameter 3.2 cm RA Systolic Volume 4C AL 38.9 ml RA Systolic Volume 4C MOD 38.1 ml LA Sys Volume AL 42.4 cm cubed LA Sys Volume Index AL 23.2 cm cubed/m squared Aorta at Sinotubular Diameter 2.1 cm M-MODE LA Ao Ratio MM 2.2 AV Cusp Separation MM 1.2 cm DOPPLER AV Peak Velocity 176.0 cm/s LVOT Peak Velocity 87.0 cm/s AV Area Cont Eq vti 1.4 cm squared AV Area Cont Eq pk 1.1 cm squared MV Peak Velocity 124.0 cm/s MV Area PHT 3.7 cm squared Mitral E to A Ratio 0.9 TV Peak Velocity 273.0 cm/s TR Peak Velocity 307.0 cm/s TR Peak Gradient 37.7 mmHg TV Peak E Velocity 84.0 cm/s PV Peak Velocity 123.0 cm/s FINDINGS Left Ventricle Normal left ventricular size, systolic function and wall thickness, with no regional wall motion abnormalities. Left ventricular ejection fraction is estimated at 60 %. Grade I/IV diastolic dysfunction (abnormal relaxation filling pattern), normal to mildly elevated filling pressures. Right Ventricle Normal right ventricular size and systolic function. Right Atrium Normal right atrial size. Left Atrium Normal left atrial size. IA Septum Normal appearance of the interatrial septum. Mitral Valve Normal mitral valve structure. No mitral valve stenosis or regurgitation. Aortic Valve Moderate aortic valve calcification. Mild aortic valve stenosis, mean gradient 6.5 mmHg, CÉSAR 1.4 cm squared. Trace aortic valve regurgitation. Tricuspid Valve Normal tricuspid valve structure. No tricuspid valve stenosis or regurgitation. Normal pulmonary pressure. Pulmonic Valve Normal pulmonic valve structure. No pulmonic valve stenosis or regurgitation. Pericardium No pericardial effusion. Aorta Normal diameter of the aortic root and ascending thoracic aorta. IVC Normal IVC diameter. CONCLUSIONS Normal left ventricular size, systolic function and wall thickness, with no regional wall motion abnormalities. Left ventricular ejection fraction is estimated at 60 %. Grade I/IV diastolic dysfunction (abnormal relaxation filling pattern), normal to mildly elevated filling pressures. Moderate aortic valve calcification. Mild aortic valve stenosis, mean gradient 6.5 mmHg, CÉSAR 1.4 cm squared. Trace aortic valve regurgitation. There is no pericardial effusion. Right atrial pressure is around 5 mm of mercury. Laina Scanlon MD (Electronically Signed) Final Date: 27 May 2025 20:03 S
--- NOTE | 2025-05-27 13:12 | PM.HP ---
Providers/Chief Complaint Primary Care Provider: Dario Cunningham DO Chief Complaint: HBP and Sob History of Present Illness Roxie Cline is a 80 year old female with a past medical history of hypertension, hyperlipidemia, hypothyroidism, TIA, history of bioprosthetic aortic valve who presents [facility] for weakness, fatigue, shortness of breath, elevated blood pressure. Currently patient is alert oriented x 3, following all commands, no facial droop, slurring words, no focal weakness reports more generalized weakness, no lightheadedness, no dizziness, Review of Systems Const: Reports: fatigue; Denies: fever(s), chills or malaise Card: Denies: chest pain or palpitations Resp: Denies: dyspnea GI: Denies: abdominal pain : Denies: flank pain Medications/Allergies Home Medications ?Medication ?Instructions ?Recorded ?Confirmed ?Last Taken ?Type losartan 100 mg tablet 100 mg PO DAILY #90 tabs 10/13/24 05/27/25 05/27/25 Rx metoprolol tartrate 25 mg tablet 25 mg PO BID #180 tabs 01/29/25 05/27/25 05/27/25 Rx atorvastatin 20 mg tablet 20 mg PO DAILY #90 tabs 04/15/25 05/27/25 05/27/25 Rx amlodipine 5 mg tablet 5 mg PO DAILY bp #30 tabs 05/26/25 05/27/25 Unknown Rx acyclovir 400 mg tablet 400 mg PO BID PRN active virus 05/27/25 05/27/25 Unknown History clopidogrel 75 mg tablet 75 mg PO DAILY 05/27/25 05/27/25 05/27/25 History latanoprost 0.005 % eye drops 1 drp ophthalmic (eye) BEDTIME 05/27/25 05/27/25 05/26/25 History levothyroxine 75 mcg tablet 75 mcg PO QAM 05/27/25 05/27/25 05/27/25 History timolol maleate 0.5 % eye drops 1 drp ophthalmic (eye) QAM 05/27/25 05/27/25 05/27/25 History Allergies Allergy/AdvReac Type Severity Reaction Status Date / Time aspirin Allergy hives Verified 02/24/25 09:26 PFSH Acute PFSH: Medical History Genital herpes No pertinent past medical history neghx: dm,dvt/pe Hypothyroid Hypertension TIA (transient ischemic attack) Surgical History Hx of knee surgery (~2016) R knee Family History Mother Hypertension Father Hypertension Brother Hypertension Stroke Grandmother Stroke Maternal Denies family history of Colon cancer Ovarian cancer Diabetes Heart disease Hypercholesteremia Breast cancer Bleeding disorder Uterine cancer Thyroid disease Social History Smoking and tobacco/nicotine status: never used tobacco/nicotine Vitals/I&O/Wt Last Vital Signs Temp 98.3 F 05/27/25 08:47 Pulse 66 05/27/25 13:08 Resp 21 H 05/27/25 13:08 BP 102/55 05/27/25 13:08 Pulse Ox 99 05/27/25 13:08 O2 Del Method Room Air 05/27/25 13:08 05/26/25 05/27/25 05/27/25 22:59 06:59 14:59 Intake Total 25.625 / 25.625 Balance 25.625 / 25.625 Weight last 48 hrs Weight 74.389 kg Physical Exam Const: COMMON NORMALS: no acute distress and patient oriented x3 Resp: COMMON NORMALS: normal respiratory effort, No retractions, No use of accessory muscles and clear to auscultation bilaterally AUSCULTATION: clear to auscultation bilaterally Cardio: COMMON NORMALS: no JVD, regular rate, regular rhythm, S1 normal heart sound present and S2 normal heart sound present RATE: regular rate RHYTHM: regular rhythm HEART SOUNDS: S1 normal heart sound present and S2 normal heart sound present GI: COMMON NORMALS: Normal to inspection, nondistended, normoactive bowel sounds present, Soft to palpation and non-tender Extremity: COMMON NORMALS: capillary refill normal, no calf tenderness and no pedal edema Neuro: COMMON NORMALS: patient oriented x3, CN's II-XII intact bilaterally and moves all extremities Psych: COMMON NORMALS: mental status grossly normal Data 05/27/25 09:35 05/27/25 09:35 A&P Assessment and plan 1. Hypertensive urgency: 2. Hypertension: Plan: - Serial EKGs, serial troponins, telemetry monitoring - CT head - Cardiac echo - Resume home blood pressure medications - Currently on Cardizem drip, - Full code - Lovenox for DVT prophylaxis PDMP PDMP Reviewed: Not Reviewed Attestations Medical Necessity Statement*: Patient requires hospitalization, outpatient observation, for hypertensive urgency Diagnoses Hypertensive urgency I16.0 Hypertension I10
[2025-05-27 14:02] LABS: NT Pro B Type Natriuretic Pept 1058 pg/mL (0-450)
--- NOTE | 2025-05-27 15:15 | ECG_ITS ---
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: : 1945 Requested By: Juan Olea Order Number: [id number] Reading MD: JV NICOLE Measurements Intervals [place] Rate: 80 P: 90 PA: 153 QRS: 96 QRSD: 122 T: 91 QT: 421 QTc: 487 Interpretive Statements SINUS RHYTHM BORDERLINE RIGHT AXIS DEVIATION [QRS AXIS > 90] SEPTAL MYOCARDIAL INFARCTION , OF INDETERMINATE AGE [40+ ms Q WAVE IN V1/V2] Compared to ECG 05/27/2025 11:17:09 Myocardial infarct finding now present Intraventricular conduction delay no longer present T-wave abnormality no longer present Prolonged QT interval no longer present Electronically Signed On 05-30-2025 21:16:33 CDT by JV NICOLE [email or web address]
--- NOTE | 2025-05-27 15:32 | PC.NURSE ---
Pt up to bedside commode and bp 210/76. Recheck in a few minutes and will contact hospitalist as Nicardipine drip is off.
[2025-05-27 16:48] LABS: Troponin 5 6HR 13.63 ng/L (0-10)
[2025-05-27 16:54] LABS: Troponin 5 6HR Delta -0.37 ng/L (0-12)
[2025-05-27] MEDS: pantoprazole 40 mg SDV IVP (17:23)
[2025-05-27 18:08] LABS: Cholesterol 141 mg/dL (0-200); HDL Cholesterol 53 mg/dL (60-100); Thyroid Stimulating Hormone 0.93 uIU/mL (0.27-4.20); Triglycerides 77 mg/dL (0-150)
[2025-05-27 20:15] LABS: Estmated Average Glucose 140; Hemoglobin A1C 6.5 % (4.0-6.0)
[2025-05-27 23:04] LABS: Glucose Urine UA Negative (Normal); Nitrate Urine Negative (Negative); Specific Gravity, Urine 1.014 (1.005-1.030)
[2025-05-27 23:09] LABS: Add Urine Microscopic? YES
[2025-05-28] VITALS (8 sets, daily range): BP systolic 134–181; BP diastolic 64–72; PULSE 65–96; RESP 15–17; TEMP 36.7–37.6; O2SAT 92–96
[2025-05-28] MEDS: LOSARTAN 100 MG TABLET PO (04:34)
[2025-05-28] MEDS: timolol 0.5% Op Soln 5 mL Btl 1 EACH EYE-BOTH (04:35)
[2025-05-28] MEDS: ATORVASTATIN 20 MG TABLET PO (04:35)
[2025-05-28 05:18] LABS: Hematocrit 37.9 % (36-47); Hemoglobin 12.70 g/dL (11.27-16.99); Mean Corpuscular HGB Conc 33.5 g/dL (30-55); Mean Corpuscular Hemoglobin 30.0 pg (27-33); Mean Corpuscular Volume 89.6 fl (85-98); Nucleated Red Blood Cells % 0 %; Platelet Count 252 10^3/cmm (157-399); Red Blood Count 4.23 10^6/uL (3.85-5.65); White Blood Count 8.43 10^3/uL (3.29-11.43)
[2025-05-28 05:43] LABS: Alanine Aminotransferase 19 U/L (0-33); Albumin Level 3.9 g/dL (3.5-5.2); Alkaline Phosphatase 74 U/L (35-105); Anion Gap 17.5 (5-19); Aspartate Amino Transferase 17 U/L (0-32); Blood Urea Nitrogen 11 mg/dL (8-23); Calcium 9.1 mg/dL (8.5-10.5); Carbon Dioxide 23 mmol/L (22-29); Chloride 102 mmol/L (98-107); Creatinine Clr Calc Pharmacy 54.1464; Globulin 2.5 g/dL (1.3-4.6); Glucose 123 mg/dL (65-115); Osmolality Calculated 289 mOsm/kg (285-295); Potassium 3.5 mmol/L (3.5-5.1); Sodium 139 mmol/L (136-145); Total Protein 6.4 g/dL (6.6-8.7)
--- NOTE | 2025-05-28 11:46 | PC.NURSE ---
Patient Discharge Patient given discharge information answered all questions, IV and telly removed. patient belongings collected by family and accounted for. Vitals taken and documented. wheeled out to family vehicle.
--- NOTE | 2025-06-04 14:51 | PM.DCS ---
Discharge Providers Date of Admission: 05/27/25 13:11 Date of Discharge: June 04, 2025 Attending Provider at Admission: Jeremy Aquino MD Attending Provider at Discharge: Jeremy Aquino MD Primary Care Provider: Dario Cunningham DO Diagnoses at Discharge Discharge Diagnosis 1. Hypertensive urgency: 2. Hypertension: Reason for Visit Reason for Visit: HBP and Sob Hospital Course Hospital Course Roxie Cline is a 80 year old female with a past medical history of hypertension, hyperlipidemia, hypothyroidism, TIA, history of bioprosthetic aortic valve who presents [facility] for weakness, fatigue, shortness of breath, elevated blood pressure. Currently patient is alert oriented x 3, following all commands, no facial droop, slurring words, no focal weakness reports more generalized weakness, no lightheadedness, no dizziness, Patient was admitted to [facility] for hypertensive urgency CT head no acute findings Cardiac echo CONCLUSIONS Normal left ventricular size, systolic function and wall thickness, with no regional wall motion abnormalities. Left ventricular ejection fraction is estimated at 60 %. Grade I/IV diastolic dysfunction (abnormal relaxation filling pattern), normal to mildly elevated filling pressures. Moderate aortic valve calcification. Mild aortic valve stenosis, mean gradient 6.5 mmHg, CÉSAR 1.4 cm squared. Trace aortic valve regurgitation. There is no pericardial effusion. Right atrial pressure is around 5 mm of mercury. - For mild aortic valve stenosis follow-up with primary care Required titration of blood pressure medications, discharged on p.o. blood pressure medications -please follow up with primary care physician -please check blood twice daily, record in blood pressure log -if you develop lightheadedness or dizzyness or systolic blood pressure is less than 90 or diastolic blood pressure is less than 60 please decrease hydralazine to 25 mg twice daily - If your systolic blood pressures greater than 180 or diastolic blood pressure is greater than 100 please go to the emergency room Physical Exam Const: COMMON NORMALS: no acute distress and patient oriented x3 Resp: COMMON NORMALS: normal respiratory effort, No retractions, No use of accessory muscles and clear to auscultation bilaterally AUSCULTATION: clear to auscultation bilaterally Cardio: COMMON NORMALS: regular rate, regular rhythm, S1 normal heart sound present and S2 normal heart sound present RATE: regular rate RHYTHM: regular rhythm HEART SOUNDS: S1 normal heart sound present and S2 normal heart sound present GI: COMMON NORMALS: Normal to inspection, nondistended, normoactive bowel sounds present and non-tender Extremity: COMMON NORMALS: no calf tenderness and no pedal edema Neuro: COMMON NORMALS: patient oriented x3, CN's II-XII intact bilaterally and moves all extremities Psych: COMMON NORMALS: mental status grossly normal Discharge Data Studies Completed and Pending Completed Studies During Hospitalization Category Date Time Status CT head wo con* [id number] Stat Cat Scan 05/27/25 13:07 Completed XR chest 1V portable [id number] Stat Exams 05/27/25 09:14 Completed CV. echo complete* [id number] Stat Ultrasound 05/27/25 13:08 Completed Radiology Impressions Chest X-Ray 05/27/25 09:14 IMPRESSION: 1. No acute cardiopulmonary finding. Head CT 05/27/25 13:07 IMPRESSION: 1. No acute intracranial hemorrhage or edema. 2. Very mild cerebral atrophy and small vessel disease. Laboratory Results WBC 8.43 10^3/uL (3.29-11.43) 05/28/25 04:30 RBC 4.23 10^6/uL (3.85-5.65) 05/28/25 04:30 Hgb 12.70 g/dL (11.27-16.99) 05/28/25 04:30 Hct 37.9 % (36-47) 05/28/25 04:30 MCV 89.6 fl (85-98) 05/28/25 04:30 MCH 30.0 pg (27-33) 05/28/25 04:30 MCHC 33.5 g/dL (30-55) 05/28/25 04:30 RDW 14.1 % (12.1-15.1) 05/28/25 04:30 Plt Count 252 10^3/cmm (157-399) D 05/28/25 04:30 MPV 10.0 fL (7.4-10.4) 05/28/25 04:30 Neut % (Auto) 64.4 % 05/28/25 04:30 Lymph % (Auto) 24.1 % 05/28/25 04:30 [place] % (Auto) 9.5 % 05/28/25 04:30 Eos % (Auto) 1.4 % 05/28/25 04:30 Baso % (Auto) 0.4 % 05/28/25 04:30 Neut # (Auto) 5.43 10^3/uL (1.8-7.7) 05/28/25 04:30 Lymph # (Auto) 2.0 10^3/uL (0.8-4.8) 05/28/25 04:30 [place] # (Auto) 0.8 10^3/uL (0.2-0.9) 05/28/25 04:30 Eos # (Auto) 0.1 10^3/uL (0.0-0.8) 05/28/25 04:30 Baso # (Auto) 0.0 10^3/uL (0.0-0.1) 05/28/25 04:30 Nucleated RBC % (auto) 0 % 05/28/25 04:30 Nucleated RBCs # 0.0 /100WBC 05/28/25 04:30 Sodium 139 mmol/L (136-145) 05/28/25 04:30 Potassium 3.5 mmol/L (3.5-5.1) 05/28/25 04:30 Chloride 102 mmol/L (98-107) 05/28/25 04:30 Carbon Dioxide 23 mmol/L (22-29) 05/28/25 04:30 Anion Gap 17.5 (5-19) 05/28/25 04:30 BUN 11 mg/dL (8-23) 05/28/25 04:30 Creatinine 0.6 mg/dL (0.5-0.9) 05/28/25 04:30 GFR Calculation Not Reportable 05/28/25 04:30 Glucose 123 mg/dL (65-115) H 05/28/25 04:30 Estimat Average Glucose 140 05/27/25 17:24 Hemoglobin A1c 6.5 % (4.0-6.0) H 05/27/25 17:24 Calculated Osmolality 289 mOsm/kg (285-295) 05/28/25 04:30 Calcium 9.1 mg/dL (8.5-10.5) 05/28/25 04:30 Total Bilirubin 1.4 mg/dL (0.15-1.2) H 05/28/25 04:30 AST 17 U/L (0-32) 05/28/25 04:30 ALT 19 U/L (0-33) 05/28/25 04:30 Alkaline Phosphatase 74 U/L (35-105) 05/28/25 04:30 Troponin T Baseline 14 ng/L (0-10) H 05/27/25 09:35 Troponin T 120 Minute 14.29 ng/L (0-10) H 05/27/25 11:19 Delta Troponin T 0.29 ABS# (0-10) 05/27/25 11:19 Troponin T Hi Sens 6Hr 13.63 ng/L (0-10) H 05/27/25 15:43 Troponin T Hi Sens 6Hr Delta -0.37 ng/L (0-12) L 05/27/25 15:43 NT-Pro-B Natriuret Pep 1058 pg/mL (0-450) H 05/27/25 09:35 Total Protein 6.4 g/dL (6.6-8.7) L 05/28/25 04:30 Albumin 3.9 g/dL (3.5-5.2) 05/28/25 04:30 Globulin 2.5 g/dL (1.3-4.6) 05/28/25 04:30 Triglycerides 77 mg/dL (0-150) 05/27/25 17:24 Cholesterol 141 mg/dL (0-200) 05/27/25 17:24 LDL Cholesterol, Calc 73 mg/dL (50-129) 05/27/25 17:24 HDL Cholesterol 53 mg/dL (60-100) L 05/27/25 17:24 LDL/HDL Ratio 1.38 RATIO (0.00-3.22) 05/27/25 17:24 Cholesterol/HDL Ratio 2.66 mg/dL (0.0-4.40) 05/27/25 17:24 TSH 0.93 uIU/mL (0.27-4.20) 05/27/25 17:24 Urine Color Yellow (Yellow) 05/27/25 22:52 Urine Appearance Clear (CLEAR) 05/27/25 22:52 Urine pH 7.0 (5-7) 05/27/25 22:52 Ur Specific [place] 1.014 (1.005-1.030) 05/27/25 22:52 Urine Protein 1+ (Negative) A 05/27/25 22:52 Urine Glucose (UA) Negative (Normal) 05/27/25 22:52 Urine Ketones Trace (Negative) 05/27/25 22:52 Urine Blood Negative (Negative) 05/27/25 22:52 Urine Nitrate Negative (Negative) 05/27/25 22:52 Urine Bilirubin Negative (Negative) 05/27/25 22:52 Urine Urobilinogen 1.0 mg/dL (Negative) 05/27/25 22:52 Ur Leukocyte Esterase Trace (Negative) A 05/27/25 22:52 Urine RBC 0-2 /hpf (0-2) 05/27/25 22:52 Urine WBC 6-10 /hpf (0-5) 05/27/25 22:52 Ur Squamous Epith Cells 0-5 /hpf (0-5) 05/27/25 22:52 Amorphous Sediment Not Reportable 05/27/25 22:52 Urine Bacteria None seen /hpf (NONE) 05/27/25 22:52 Hyaline Casts 0-4 /lpf H 05/27/25 22:52 Vitals Last Vital Signs Temp 99.7 F H 05/28/25 11:40 Pulse 73 05/28/25 11:40 Resp 15 05/28/25 11:40 BP 134/70 05/28/25 11:40 Pulse Ox 95 05/28/25 11:40 O2 Del Method Room Air 05/28/25 11:07 Discharge Plan Discharge Patient Disposition: Home Condition: Stable Prescriptions: New hydralazine 25 mg Tablet 25 mg PO TID 30 Days Qty: 90 0RF Continued losartan 100 mg tablet 100 mg PO DAILY Qty: 90 3RF metoprolol tartrate 25 mg tablet 25 mg PO BID Qty: 180 3RF atorvastatin 20 mg tablet 20 mg PO DAILY Qty: 90 3RF latanoprost 0.005 % drops 1 drp ophthalmic (eye) BEDTIME timolol maleate 0.5 % drops 1 drp ophthalmic (eye) QAM clopidogrel 75 mg tablet 75 mg PO DAILY acyclovir 400 mg tablet 400 mg PO BID PRN (Reason: active virus) Rx Instructions: suppression levothyroxine 75 mcg tablet 75 mcg PO QAM Changed amlodipine 5 mg tablet 10 mg PO DAILY 30 Days Qty: 60 0RF Discharge Order = DC NOW: Discharge Order (Routine); Ordered 05/28/25 Ordered By: Jeremy Aquino Referrals: Dario Cunningham DO [Primary Care Provider, Family Practice] - 06/05/25 9:40 am Discharge Diet: Cardiac Discharge Activity: Resume usual activity Patient Instructions: Hydralazine (By mouth) (Apresoline), Hypertensive Crisis (DC), Hypertension (DC), Opioid Safety, Patient Portal & [place]ja Instructions Activity Restrictions/Additional Instructions: -please follow up with primary care physician -please check blood twice daily, record in blood pressure log -if you develop lightheadedness or dizzyness or systolic blood pressure is less than 90 or diastolic blood pressure is less than 60 please decrease hydralazine to 25 mg twice daily - If your systolic blood pressures greater than 180 or diastolic blood pressure is greater than 100 please go to the emergency room Discharge Attestations Time Spent in Discharge Care*: greater than 30 min Quality Metrics Clinical Quality Measures [ No reported AMI, CVA or VTE this stay] Coding Level of Care Code 36742 Total time (in minutes) for Discharge: 45 Diagnoses Hypertensive urgency I16.0 Hypertension I10
== END 2025-05-28 11:50 | disposition home or self-care (01) ==
LOC: ER 10:14 → ER IP 13:13 → MEDSURG 15:34 → ER IP 16:31 → MEDSURG 20:20
PROVIDERS: Admitting Provider Family Medicine; Emergency Provider Family Medicine; PCP Family Medicine; Visit Provider Family Medicine
DX: I16.0 Hypertensive urgency (principal); I10 Essential (primary) hypertension; Z79.02 Long term (current) use of antithrombotics/antiplatelets; E78.5 Hyperlipidemia, unspecified; E03.9 Hypothyroidism, unspecified; Z86.73 Personal history of transient ischemic attack (TIA), and cerebral infarction without residual deficits; Z82.49 Family history of ischemic heart disease and other diseases of the circulatory system; Z82.3 Family history of stroke
CPT/HCPCS: 36415; 70450; 71045; 80053; 80061; 81001; 83036; 83880; 84443; 84484; 85025; 93005; 93306; 94664; 96365; 96366; 96372; 96375; 96376; 99285; G0378; J0360; J1650; J2404; J2470; J9999